=== PATIENT | female | born 1980 | race American Indian/Alaskan Native ===

== ENCOUNTER 2017-06-01 13:46 | Outpatient (CLI) | payer OTHER ==
--- NOTE | 2017-06-02 11:04 | Mammography Report ---
BILATERAL DIGITAL DIAGNOSTIC MAMMOGRAM with CAD and BILATERAL BREAST ULTRASOUND: 06/01/17 14:00:00 CLINICAL: Bilateral breast pain. COMPARISON:None. FINDINGS: The breasts are heterogeneously dense, which may obscures small masses. Left upper outer asymmetry with architectural distortion demonstrated satisfactory placement with spot compression. A few additional bilateral asymmetries. A 1 cm partially circumscribed oval right upper inner asymmetry persists with spot compression. No mass, or architectural distortion or suspicious calcifications. Ultrasound of the right breast (including all four quadrants and the retroareolar area) was performed. An oval solid hypoechoic smooth mass at 1 o'clock 5.5 cm from the nipple corresponds to the persistent right mammographic asymmetry. It measures 0.80 0.5 x 0.7 cm. No other mass or cyst of the right breast. Ultrasound of the left breast (including all four quadrants and the retroareolar area) demonstrated normal fibroglandular and fatty structures. No mass, cyst or shadowing. IMPRESSION: A probably benign 8mm right breast mass at 1 o'clock 5.5 cm from the nipple and probably benign bilateral mammographic asymmetries with no ultrasound correlates. BI-RADS CATEGORY: 3 - - Probably Benign RECOMMENDATION: Six month followup bilateral mammogram and right breast ultrasound. COMMENT: Patient follow-up letters are generated by our [employer] application.
== END 2017-06-01 13:47 | disposition home or self-care (01) ==
LOC: MAMMO 13:46
DX: N63 Unspecified lump in breast (principal); N64.4 Mastodynia; N64.89 Other specified disorders of breast; Z80.3 Family history of malignant neoplasm of breast
CPT/HCPCS: 76641; G0204; 77066

== ENCOUNTER 2020-07-08 06:47 | Outpatient (CLI) | payer OTHER ==
--- NOTE | 2020-07-08 09:30 | Mammography Report ---
DIGITAL SCREENING MAMMOGRAM WITH CAD, 07/08/2020 INDICATION: Routine screening mammography. TECHNIQUE: Digital bilateral 2D mammography was obtained in the craniocaudal and mediolateral obliq ue projections. This examination was interpreted with the benefit of Computer-Aided Detection analysi s. COMPARISON: 06/01/2017 FINDINGS: Breast Density: The breasts are almost entirely fatty. There is no evidence of dominant mass, suspicious calcifications or architectural distortion in eithe r breast. IMPRESSION: Follow up recommendation: Routine yearly BI-RADS Category 1: Negative. A "normal" or negative report should not discourage follow up or biopsy of a clinically significant f inding. A written summary of these findings will be mailed to the patient. The patient will be entered into a mammography reporting system which will generate a reminder letter for the patient's next appointmen t at the appropriate interval. The [employer] recommends yearly mammograms starting at age 40 and continuing as l tomas as a woman is in good health. Breast MRI is recommended for women with an approximate 20-25% or greater lifetime risk of breast cancer, including women with a strong family history of breast or ova finesse cancer or who have been treated for Hodgkin's disease. Signer Name: Brandon Bautista MD Signed: 07/08/2020 9:25 AM Workstation Name: [id number]
== END 2020-07-08 06:48 | disposition home or self-care (01) ==
LOC: MAMMO 06:47
PROVIDERS: ATTEND Nurse Practitioner
DX: Z12.31 Encounter for screening mammogram for malignant neoplasm of breast (principal)
CPT/HCPCS: 77067